=== PATIENT | female | born 1930 | race Caucasian/White ===

== ENCOUNTER 2017-04-05 11:26 | Observation (INO) | payer OTHER ==
[2017-04-05] MEDS ORDERED: ZOFRAN INJ 4 MG VIAL IVP PRN (12:35)
[2017-04-05 13:21] LABS: BASOPHILS % (AUTO) 0.6 % (0.2-1.0); EOSINOPHILS # (AUTO) 0.1 x10^3/uL (0.0-0.2); EOSINOPHILS % (AUTO) 2.1 % (0.9-2.9); HEMATOCRIT 39.6 % (36.0-47.0); HEMOGLOBIN 13.5 g/dL (12.0-16.0); LYMPHOCYTES # (AUTO) 0.8 X10^3/uL (1.3-2.9); LYMPHOCYTES % (AUTO) 13.3 % (21.0-51.0); MEAN CORPUSCULAR HEMOGLOBIN 29.7 pg (27.0-34.0); MEAN CORPUSCULAR HGB CONC 34.2 g/dL (33.0-35.0); MEAN CORPUSCULAR VOLUME 86.8 fL (80.0-100.0); MEAN PLATELET VOLUME 7.9 fL (7.4-11.0); MONOCYTES # (AUTO) 0.4 x10^3/uL (0.3-0.8); MONOCYTES % (AUTO) 6.5 % (0.0-13.0); NEUTROPHILS # (AUTO) 4.7 x10^3/uL (2.2-4.8); NEUTROPHILS % (AUTO) 77.5 % (42.0-75.0); PLATELET COUNT 170 X10^3/uL (150.0-450.0); RED BLOOD COUNT 4.56 X10^6/uL (3.5-5.4); RED CELL DISTRIBUTION WIDTH 13.5 % (11.6-16.5); WHITE BLOOD COUNT 6.1 X10^3/uL (3.6-10.0)
[2017-04-05 13:24] VITALS: BMI 27.6
[2017-04-05 13:35] LABS: ALANINE AMINOTRANSFERASE 21 Units/L (12-78); ALBUMIN 3.6 g/dL (3.4-5.0); ALKALINE PHOSPHATASE 59 Units/L (46-116); ASPARTATE AMINO TRANSFERASE 17 Units/L (15-37); BLOOD UREA NITROGEN 14 mg/dL (7-18); CALCIUM 9.1 mg/dL (8.5-10.1); CARBON DIOXIDE 25.9 mmol/L (21-32); CHLORIDE 106 mmol/L (98-107); CREATININE 0.91 mg/dL (0.55-1.02); GLUCOSE 93 mg/dL (65-99); SODIUM 142 mmol/L (136-145); TOTAL PROTEIN 7.3 g/dL (6.4-8.2); eGFR BLACK RACES > 60 (>60); eGFR NON BLACK RACES > 60 (>60)
[2017-04-05] MEDS: FLAGYL IV PREMIX 500 MG BAG 500 MG/100 ML BAG IV SCH ×3 (14:12→20:26)
[2017-04-05] MEDS: NS 1000 ML 1,000 ML IV SCH (14:13)
[2017-04-05] MEDS: CIPRO IV 400 MG PREMIX* 400 MG/200 ML IV.SOLN. IV SCH ×2 (14:13→20:26)
[2017-04-05] MEDS: PROTONIX INJ 40 MG VIAL IVP SCH (14:16)
[2017-04-05] MEDS ORDERED: PATIENT'S HOME MEDICATION PO SCH (15:00)
--- NOTE | 2017-04-05 15:21 | DR.H&P ---
H&P - History & Physical for Day of: H&P Date: 04/05/17 - Chief Complaint Chief Complaint: RLQ PAIN, FEVER, SEVERE DIARRHEA - Allergies Allergies/Adverse Reactions: Allergies Allergy/AdvReac Type Severity Reaction Status Date / Time Quinine Allergy Verified 01/07/13 09:54 - History of Present Illness History of Present Illness: 86 WF DIRECT ADMIT FROM DR WILSON OFFICE WITH CO RLQ PAIN AND DIARRHEA FOR SEVERAL DAYS. PT STATES THIS AM SHE WAS VERY WEAK, CLAMMY, HAD NEAR SYNCOPE EPISODE. PT HAS PMH OF HTN, ALANNA AND HYPERLIPIDEMIA. PLAN TO ADMIT FOR EVALUAITON OF ABDOMINAL PAIN AND DIARRHEA. PLAN TO OBTAIN LABS , STOOL STUDIES, ADMINISTER IV ATBX AND IV FLUIDS, CT ABD/PELVIS R/O DIVERTICULITIS - Past Medical History Past Medical History: Anxiety, Depression, Hypertension - Past Surgical History Surgical History: Abdominal Surgery - Family History Family Medical History: Diabetes Mellitus, Cancer, Coronary Artery Disease, Hypertension - Social History Does patient currently use any type of tobacco product: No Have you used tobacco products in the last 12 months: No Type of Tobacco Use: None Does any household member use tobacco: No Alcohol Use: None Drug Use: None - Medications Home Medications: Amlodipine Besylate [Amlodipine Besylate] 1 tab PO DAILY 04/05/17 [History Confirmed 04/05/17] Loratadine [Allergy] 1 tab PO DAILY 04/05/17 [History Confirmed 04/05/17] Lovastatin [Lovastatin] 1 tab PO HS 04/05/17 [History Confirmed 04/05/17] Misc Home Med [Patient's Home Medication (Non-PO)] 1 tab PO DAILY 04/05/17 [ History Confirmed 04/05/17] Misc Home Med [Patient's Home Medication (Non-PO)] 50 mg PO DAILY 04/05/17 [ History Confirmed 04/05/17] Quetiapine Fumarate [Quetiapine Fumarate] 1 tab PO HS 04/05/17 [History Confirmed 04/05/17] - Review of Systems Constitutional: Fever, Chills, Sweats, Weakness Eyes: No Symptoms Reported ENT: No Symptoms Reported Respiratory: No Symptoms Reported Cardiovascular: [place] Gastrointestinal: Nausea, Abdominal Pain, Diarrhea Genitourinary: No Symptoms Reported Musculoskeletal: No Symptoms Reported Skin: No Symptoms Reported Neurological: No Symptoms Reported - Physical Exam Vital Signs: Temperature 98.8 F Pulse Rate [Right Brachial] 58 Respiratory Rate 20 Blood Pressure [Left Arm] 130/60 Blood Pressure [Right Arm] 133/62 Blood Pressure 133/66 O2 Sat by Pulse Oximetry 96 Oriented: Normal Eyes: Normal Ear: Normal Nose: Normal Throat: Dry Respiratory: Clear Throughout Cardiovascular: Normal : Normal Auscultation: Bowel Sounds: Increased Tenderness: RLQ Skin: Decreased Turgur Musculoskeletal: Normal Psychiatric: Anxiety Speech Pattern: Clear, Appropriate - Assessment/Plan (1) Abdominal pain Qualifiers: Abdominal location: A Status: Acute Plan: ADMIT, NPO FOR CT SCAN ABD/PELVIS. CBC, CMP STOOL STUDIES. UA/UC, FLAGYL IV, CIPRO IV. IV NS FOR HYDRATION. PAIN CONTROL, REPEAT AM LABS (2) Dehydration Status: Acute Plan: SEE ABOVE (3) Diarrhea Qualifiers: Diarrhea type: D Status: Acute (4) Hypertension Qualifiers: Hypertension type: H Status: Chronic
[2017-04-05] MEDS: CLARITIN PO SCH (15:58)
[2017-04-05] MEDS: NORVASC TAB 2.5 MG PO SCH (15:58)
[2017-04-05] MEDS ORDERED: NS 100 ML IV 100 ML IV ONE (16:27)
[2017-04-05 16:51] LABS: BILIRUBIN,URINE NEGATIVE (NEGATIVE); BLOOD/HEMOGLOBIN,URINE 1+ (NEGATIVE); GLUCOSE, URINE NEGATIVE (NEGATIVE); KETONES,URINE 3+ (NEGATIVE); LEUKOCYTE ESTERASE ,URINE 2+ (NEGATIVE); NITRITES,URINE NEGATIVE (NEGATIVE); PROTEIN,URINE NEGATIVE (NEGATIVE); UROBILINOGEN,URINE NORMAL (NORMAL)
[2017-04-05 16:59] LABS: APPEARANCE,URINE CLEAR (CLEAR); BACTERIA,URINE NEGATIVE /HPF (NEGATIVE); COLOR,URINE YELLOW (YELLOW); RBC,URINE RARE /HPF (NEGATIVE); SQUAMOUS EPITHELIAL CELL,UR RARE /HPF (NEGATIVE)
--- NOTE | 2017-04-05 17:27 | RAD ---
History : Hypertension and dizziness and near-syncope Study: AP chest Comparison: April 2016 Findings: There is a large air-filled hiatal hernia as before. The lungs are clear the heart size is normal. The mediastinum is unremarkable. Impression: Large hiatal hernia Reported By:
--- NOTE | 2017-04-05 17:34 | CT ---
HISTORY: Right lower quadrant pain and fever and nausea Study: CT abdomen and pelvis with IV and oral contrast Comparison: May 13, 2016 Technique: Multiple axial images of the abdomen and pelvis were obtained from the lung bases to the pubic symph ysis with the administration of IV contrast. Sagittal and coronal reformations were provided. Findings: As before there is a large gaseous distended hiatal hernia. The liver, spleen, pancreas, kidneys, and adrenal glands are unremarkable in their CT appearance. The gallbladder is unremarkable in its C T appearance. No significant mesenteric lymphadenopathy or stranding can be observed. No free flui d or free air is seen within the abdomen. There is an unchanged small fat containing ventral abdomi nal hernia through a defect measuring 2 centimeters, inferior to the umbilicus. The uterus is small. There is no adnexal mass. I do not visualize the appendix on today's exam.. The colon is unremarka ble. Specifically, there is no diverticulosis noted within the sigmoid colon. The urinary bladder i s grossly unremarkable. The bony structures are grossly intact. IMPRESSION: 1. Unchanged large hiatal hernia and small midline ventral abdominal hernia Reported By:
[2017-04-05] MEDS ORDERED: NORCO 5/325 MG TAB PO PRN (18:01)
[2017-04-05] MEDS ORDERED: [UNRECOGNIZED DRUG - OTHER] PO SCH (21:00)
[2017-04-05] MEDS ORDERED: [UNRECOGNIZED DRUG - OTHER] PO SCH (21:00)
[2017-04-06] MEDS: NS 1000 ML 1,000 ML IV SCH ×3 (04:19→21:22)
[2017-04-06] MEDS: FLAGYL IV PREMIX 500 MG BAG 500 MG/100 ML BAG IV SCH ×4 (04:19→21:22)
[2017-04-06] MEDS: PATIENT'S HOME MEDICATION PO SCH ×5 (06:22→18:56)
[2017-04-06 06:32] LABS: BASOPHILS % (AUTO) 0.9 % (0.2-1.0); EOSINOPHILS # (AUTO) 0.4 x10^3/uL (0.0-0.2); EOSINOPHILS % (AUTO) 9.1 % (0.9-2.9); HEMATOCRIT 36.5 % (36.0-47.0); HEMOGLOBIN 12.2 g/dL (12.0-16.0); LYMPHOCYTES % (AUTO) 24.1 % (21.0-51.0); MEAN CORPUSCULAR HEMOGLOBIN 29.2 pg (27.0-34.0); MEAN CORPUSCULAR HGB CONC 33.5 g/dL (33.0-35.0); MEAN CORPUSCULAR VOLUME 87.3 fL (80.0-100.0); MEAN PLATELET VOLUME 8.4 fL (7.4-11.0); MONOCYTES # (AUTO) 0.5 x10^3/uL (0.3-0.8); NEUTROPHILS # (AUTO) 2.4 x10^3/uL (2.2-4.8); NEUTROPHILS % (AUTO) 54.9 % (42.0-75.0); PLATELET COUNT 153 X10^3/uL (150.0-450.0); RED BLOOD COUNT 4.18 X10^6/uL (3.5-5.4); RED CELL DISTRIBUTION WIDTH 13.8 % (11.6-16.5); WHITE BLOOD COUNT 4.3 X10^3/uL (3.6-10.0)
[2017-04-06 06:41] LABS: ALANINE AMINOTRANSFERASE 19 Units/L (12-78); ALKALINE PHOSPHATASE 47 Units/L (46-116); AMYLASE 20 Units/L (25-115); ASPARTATE AMINO TRANSFERASE 16 Units/L (15-37); BLOOD UREA NITROGEN 10 mg/dL (7-18); CALCIUM 8.8 mg/dL (8.5-10.1); CARBON DIOXIDE 26.8 mmol/L (21-32); CHLORIDE 109 mmol/L (98-107); COR CA(FOR HYPOALB) 9.6 mg/dL (8.5-10.1); CREATININE 0.84 mg/dL (0.55-1.02); GLUCOSE 75 mg/dL (65-99); LIPASE 110 Units/L (73-393); SODIUM 144 mmol/L (136-145); TOTAL PROTEIN 6.3 g/dL (6.4-8.2); eGFR BLACK RACES > 60 (>60); eGFR NON BLACK RACES > 60 (>60)
[2017-04-06] MEDS ORDERED: NORVASC TAB 2.5 MG ONE (08:27)
[2017-04-06] MEDS: CIPRO IV 400 MG PREMIX* 400 MG/200 ML IV.SOLN. IV SCH ×2 (08:29→21:22)
[2017-04-06] MEDS: PROTONIX INJ 40 MG VIAL IVP SCH (08:29)
[2017-04-06] MEDS: NORVASC TAB 2.5 MG PO SCH (08:29)
[2017-04-06] MEDS: CLARITIN PO SCH (08:34)
--- NOTE | 2017-04-06 13:33 | PCM.PROG ---
Progress Note - Progress Note for Day of Date: 04/06/17 - Subjective Subjective: patient is a 86-year-old white female who was admitted one day ago with severe diarrhea, dehydration, weakness. Patient was admitted for IV hydration. Patient continues to complain of abdominal cramps and diarrhea this a.m. continued weakness. Plan to obtain a gallbladder ultrasound and repeat a.m. labs. - Past Medical Family Social History Past Med/Fam/Surg Hx: No changes since H&P Allergies: Allergies Quinine Allergy (Verified 01/07/13 09:54) - Review of Systems ROS: No change since H&P - Vital Signs and I&O's Vital Signs: Temperature 98.7 F Pulse Rate [Right Brachial] 53 Respiratory Rate 18 Blood Pressure [Left Arm] 134/63 Blood Pressure [Right Arm] 120/61 Blood Pressure 133/66 O2 Sat by Pulse Oximetry 96 Intake and Output: Intake & Output 04/04/17 04/05/17 04/06/17 04/07/17 11:59 11:59 11:59 11:59 Intake Total 1161 Balance 1161 - Physical Exam Oriented: Normal Eyes: Normal Ear: Normal Nose: Normal Throat: Dry Cardiovascular: Normal : Normal Auscultation: Bowel Sounds: Increased Tenderness: RLQ Skin: Decreased Turgur Musculoskeletal: Normal Psychiatric: Anxiety Speech Pattern: Clear, Appropriate - Laboratory and Diagnostics Result Diagrams: 04/06/17 03:45 04/06/17 03:45 Labs: Laboratory WBC 4.3 X10^3/uL (3.6-10.0) 04/06/17 03:45 RBC 4.18 X10^6/uL (3.5-5.4) 04/06/17 03:45 Hgb 12.2 g/dL (12.0-16.0) 04/06/17 03:45 Hct 36.5 % (36.0-47.0) 04/06/17 03:45 MCV 87.3 fL (80.0-100.0) 04/06/17 03:45 MCH 29.2 pg (27.0-34.0) 04/06/17 03:45 MCHC 33.5 g/dL (33.0-35.0) 04/06/17 03:45 RDW 13.8 % (11.6-16.5) 04/06/17 03:45 Plt Count 153 X10^3/uL (150.0-450.0) 04/06/17 03:45 MPV 8.4 fL (7.4-11.0) 04/06/17 03:45 Neut % 54.9 % (42.0-75.0) 04/06/17 03:45 Lymph % 24.1 % (21.0-51.0) 04/06/17 03:45 Christian % 11.0 % (0.0-13.0) 04/06/17 03:45 Eos % 9.1 % (0.9-2.9) H 04/06/17 03:45 Baso % 0.9 % (0.2-1.0) 04/06/17 03:45 Neut # 2.4 x10^3/uL (2.2-4.8) 04/06/17 03:45 Lymph # 1.0 X10^3/uL (1.3-2.9) L 04/06/17 03:45 Christian # 0.5 x10^3/uL (0.3-0.8) 04/06/17 03:45 Eos # 0.4 x10^3/uL (0.0-0.2) H 04/06/17 03:45 Baso # 0.0 X10^3/uL (0.0-0.1) 04/06/17 03:45 Absolute Nucleated RBC 0.1 /100WBC 04/06/17 03:45 Sodium 144 mmol/L (136-145) 04/06/17 03:45 Corrected Sodium TNP 04/06/17 03:45 Potassium 4.2 mmol/L (3.5-5.1) 04/06/17 03:45 Chloride 109 mmol/L (98-107) H 04/06/17 03:45 Carbon Dioxide 26.8 mmol/L (21-32) 04/06/17 03:45 BUN 10 mg/dL (7-18) 04/06/17 03:45 Creatinine 0.84 mg/dL (0.55-1.02) 04/06/17 03:45 Est GFR (MDRD) Af Amer > 60 (>60) 04/06/17 03:45 Est GFR (MDRD) Non-Af > 60 (>60) 04/06/17 03:45 Glucose 75 mg/dL (65-99) 04/06/17 03:45 Calcium 8.8 mg/dL (8.5-10.1) 04/06/17 03:45 Corrected Calcium 9.6 mg/dL (8.5-10.1) 04/06/17 03:45 Total Bilirubin 0.50 mg/dL (0.2-1.0) 04/06/17 03:45 AST 16 Units/L (15-37) 04/06/17 03:45 ALT 19 Units/L (12-78) 04/06/17 03:45 Alkaline Phosphatase 47 Units/L (46-116) 04/06/17 03:45 Total Protein 6.3 g/dL (6.4-8.2) L 04/06/17 03:45 Albumin 3.0 g/dL (3.4-5.0) L 04/06/17 03:45 Globulin 3.3 g/dL (2.5-4.5) 04/06/17 03:45 Albumin/Globulin Ratio 0.9 Ratio (1.1-2.1) L 04/06/17 03:45 Amylase 20 Units/L (25-115) L 04/06/17 03:45 Lipase 110 Units/L (73-393) 04/06/17 03:45 Specimen Type Clean catch urine 04/05/17 16:25 Urine Color Yellow (YELLOW) 04/05/17 16:25 Urine Appearance Clear (CLEAR) 04/05/17 16:25 Urine pH 6.0 (5.0 - 8.0) 04/05/17 16:25 Ur Specific [place] 1.015 (1.000-1.030) 04/05/17 16:25 Urine Protein Negative (NEGATIVE) 04/05/17 16:25 Urine Glucose (UA) Negative (NEGATIVE) 04/05/17 16:25 Urine Ketones 3+ (NEGATIVE) 04/05/17 16:25 Urine Occult Blood 1+ (NEGATIVE) 04/05/17 16:25 Urine Nitrite Negative (NEGATIVE) 04/05/17 16:25 Urine Bilirubin Negative (NEGATIVE) 04/05/17 16:25 Urine Urobilinogen Normal (NORMAL) 04/05/17 16:25 Ur Leukocyte Esterase 2+ (NEGATIVE) 04/05/17 16:25 Urine RBC Rare /HPF (NEGATIVE) 04/05/17 16:25 Urine WBC 0-4 /HPF (NEGATIVE) 04/05/17 16:25 Ur Squamous Epith Cells Rare /HPF (NEGATIVE) 04/05/17 16:25 Urine Bacteria Negative /HPF (NEGATIVE) 04/05/17 16:25 Ur Culture Indicated? No/not indicated 04/05/17 16:25 - Plan (1) Abdominal pain Status: Inactive Qualifiers: Abdominal location: A Plan: CBC, CMP STOOL STUDIES. UA/UC, FLAGYL IV, CIPRO IV. IV NS FOR HYDRATION. PAIN CONTROL, REPEAT AM LABS (2) Dehydration Status: Inactive Plan: SEE ABOVE (3) Diarrhea Status: Inactive Qualifiers: Diarrhea type: D Plan: stool studies (4) Hypertension Status: Chronic Qualifiers: Hypertension type: H Plan: resume home meds
--- NOTE | 2017-04-06 16:42 | US ---
RIGHT UPPER QUADRANT ULTRASOUND HISTORY: RUQ pain Comparison: None Technique: Multiple saunders scale and color flow Doppler images of the right upper quadrant were obtain ed. Findings: Overall study is limited by overlying bowel gas. The liver is normal in echotexture and size. No fo armando mass. No intrahepatic bile duct dilatation. No gallstones. No pericholecystic fluid or gallbladd er wall thickening. The technologist did not report a positive sonographic Mac's sign. The common bile duct measures 3 mm. The right kidney measures 10.0 cm. No hydronephrosis or renal masses. The pancreas is obscured by overlying bowel gas. IMPRESSION: 1. Negative right upper quadrant ultrasound. Reported By:
[2017-04-06] MEDS ORDERED: PATIENT'S HOME MEDICATION PO SCH (21:00)
[2017-04-06] MEDS ORDERED: [UNRECOGNIZED DRUG - OTHER] PO SCH (21:00)
[2017-04-07] MEDS: FLAGYL IV PREMIX 500 MG BAG 500 MG/100 ML BAG IV SCH ×2 (04:01→09:17)
[2017-04-07 08:50] VITALS: BP 132/61
[2017-04-07] MEDS: PATIENT'S HOME MEDICATION PO SCH ×4 (09:02→09:04)
[2017-04-07] MEDS: CIPRO IV 400 MG PREMIX* 400 MG/200 ML IV.SOLN. IV SCH (09:18)
[2017-04-07] MEDS: PROTONIX INJ 40 MG VIAL IVP SCH (09:18)
[2017-04-07] MEDS: NS 1000 ML 1,000 ML IV SCH (11:55)
== END 2017-04-07 12:05 | disposition home or self-care (01) | DRG 392 ==
LOC: MED/SURG 11:26
PROVIDERS: ADMIT Internal Medicine; ATTEND Internal Medicine
DX: R10.31 Right lower quadrant pain (principal); E86.0 Dehydration; R94.31 Abnormal electrocardiogram [ECG] [EKG]; K44.9 Diaphragmatic hernia without obstruction or gangrene; K45.8 Other specified abdominal hernia without obstruction or gangrene; R19.7 Diarrhea, unspecified; R55 Syncope and collapse; I10 Essential (primary) hypertension; I25.10 Atherosclerotic heart disease of native coronary artery without angina pectoris; E78.2 Mixed hyperlipidemia; F41.8 Other specified anxiety disorders; F32.89 Other specified depressive episodes
CPT/HCPCS: 36415; 71010; 74177; 76705; 80053; 81001; 82150; 83690; 85025; 93005; 93010; A4222; C9113; S0030; G0378; J0744

== ENCOUNTER → 2017-04-24 | Outpatient (CLI) | payer OTHER ==
[2017-04-07 08:50] VITALS: BP 132/61
--- NOTE | 2017-04-24 13:26 | CT ---
STUDY: CT HEAD WITHOUT CONTRAST HISTORY: Unspecified abnormalities, tinnitus, bilateral. COMPARISON: Head CT from January 07, 2013. TECHNIQUE: Multiple axial images of the head were obtained from the skull base to the vertex without administration of IV contrast. Automated exposure control (AEC) was utilized to adjust the MA and/o r kV. Findings: The sulci, cisterns and ventricles are prominent consistent with mild diffuse volume loss. There are confluent and scattered foci of low attenuation in the periventricular and subcortical wh ite matter of both hemispheres. This is a nonspecific finding which likely represents microangiopath ic change in a patient of this age. There is an old lacunar infarct in the right basal ganglia. There is no evidence of acute territori al infarction, hemorrhage, mass, mass effect or midline shift. There are no abnormal extra-axial flu id collections. There is no evidence of acute osseous abnormality or significant soft tissue swellin g. IMPRESSION: 1. No evidence of acute intracranial abnormality. 2. Nonspecific white matter change and volume loss as described. 3. Old lacunar infarct in the right basal ganglia. 4. If there remains strong clinical concern for acute intracranial abnormality, then an MRI examinat ion should be considered for further evaluation. Reported By:
== END ==
LOC: RAD 11:30
PROVIDERS: ATTEND Nurse Practitioner Family
DX: R26.89 Other abnormalities of gait and mobility (principal); H93.13 Tinnitus, bilateral; R51 Headache
CPT/HCPCS: 70450

== ENCOUNTER 2017-05-12 11:47 | Day surgery (SDC) | payer OTHER ==
[2017-05-12] MEDS: D5 LR 1000 ML 1,000 ML IV ONE (12:13)
[2017-05-12] MEDS ORDERED: DIPRIVAN VIAL 20 ML ONE (13:59)
[2017-05-12] MEDS ORDERED: DIPRIVAN VIAL 10 ML ONE ×2 (14:33→14:48)
[2017-05-12 15:33] VITALS: BP 125/59
[2017-05-12 16:36] LABS: CRYPTOSPORIDIUM PARVUM ANTIGEN NEGATIVE (NEGATIVE); GIARDIA LAMBLIA ANTIGEN NEGATIVE (NEGATIVE)
[2017-05-12] MEDS ORDERED: K-RIDER 10 MEQ/NS 100 ML 10 MEQ/100 ML BAG IV PRN (18:00)
[2017-05-12] MEDS ORDERED: K-DUR TAB 20 MEQ PO PRN (18:00)
[2017-05-12] MEDS ORDERED: POTASSIUM CHLORIDE LIQ 20 MEQ UDC PO PRN (18:00)
[2017-05-12] MEDS ORDERED: K-LYTE EFFERVESCENT PO PRN (18:00)
== END 2017-05-12 16:10 | disposition other institution (70) ==
LOC: SURG1 11:47
PROVIDERS: ATTEND Internal Medicine
PROC: 0DBP8ZX Excision of Rectum, Via Natural or Artificial Opening Endoscopic, Diagnostic (ICD-10-PCS; principal; 2017-05-12 14:30)
PROC: 0DJD8ZZ Inspection of Lower Intestinal Tract, Via Natural or Artificial Opening Endoscopic (ICD-10-PCS; principal; 2017-05-12 14:30)
PROC: 0DBN8ZX Excision of Sigmoid Colon, Via Natural or Artificial Opening Endoscopic, Diagnostic (ICD-10-PCS; principal; 2017-05-12 14:30)
DX: R10.84 Generalized abdominal pain (principal); R19.7 Diarrhea, unspecified; R11.0 Nausea; K52.89 Other specified noninfective gastroenteritis and colitis; R10.31 Right lower quadrant pain; K63.5 Polyp of colon; K57.30 Diverticulosis of large intestine without perforation or abscess without bleeding; K64.0 First degree hemorrhoids; D12.5 Benign neoplasm of sigmoid colon; Z01.810 Encounter for preprocedural cardiovascular examination
CPT/HCPCS: 87045; 87328; 87329; 87336; 87427; 87493; 87899; 93005; 93010; 99100; A4217; J3490; J7120

== ENCOUNTER 2017-05-12 16:59 | Inpatient (IN) | payer OTHER ==
[~2017-05-12 16:59] MED LIST: NEXTERONE IV 360 MG PREMIX* 200 ML IV PRN; NS 1000 ML 1,000 ML ONE
[2017-05-12] MEDS ORDERED: NS 1000 ML 1,000 ML IV PRN (17:06)
[2017-05-12 17:37] LABS: BLOOD UREA NITROGEN 8 mg/dL (7-18); CALCIUM 7.9 mg/dL (8.5-10.1); CHLORIDE 104 mmol/L (98-107); CREATININE 0.86 mg/dL (0.55-1.02); GLUCOSE 107 mg/dL (65-99); SODIUM 141 mmol/L (136-145); eGFR BLACK RACES > 60 (>60); eGFR NON BLACK RACES > 60 (>60)
[2017-05-12 17:39] VITALS: BMI 27.1
[2017-05-12 17:41] LABS: ALANINE AMINOTRANSFERASE 16 Units/L (12-78); ALBUMIN 2.4 g/dL (3.4-5.0); ALKALINE PHOSPHATASE 88 Units/L (46-116); ASPARTATE AMINO TRANSFERASE 14 Units/L (15-37); COR CA(FOR HYPOALB) 9.2 mg/dL (8.5-10.1); MAGNESIUM 1.5 mg/dL (1.7-2.9); TOTAL PROTEIN 6.6 g/dL (6.4-8.2)
[2017-05-12] MEDS ORDERED: MAGNESIUM SULFATE 1 GM/100 mL PREMIX 2 GM/200 ML BAG IV ONE (17:50)
[2017-05-12 17:54] LABS: CKMB % 3.9 % (<4); CREATINE KINASE 26 Units/L (26-192); CREATINE KINASE MB < 1.0 ng/mL (0-4.0); TROPONIN I < 0.02 ng/mL (0-1.5)
[2017-05-12] MEDS ORDERED: K-LYTE EFFERVESCENT ONE (17:56)
[2017-05-12] MEDS ORDERED: K-DUR TAB 20 MEQ PO ONE (17:56)
[2017-05-12] MEDS ORDERED: POTASSIUM CHLORIDE LIQ 20 MEQ UDC PO PRN ×2 (18:01→20:36)
[2017-05-12] MEDS ORDERED: K-RIDER 10 MEQ/NS 100 ML 10 MEQ/100 ML BAG IV PRN ×2 (18:01→20:36)
[2017-05-12] MEDS ORDERED: K-DUR TAB 20 MEQ PO PRN (18:01)
[2017-05-12] MEDS ORDERED: K-LYTE EFFERVESCENT PO PRN ×2 (18:01→20:36)
[2017-05-12] MEDS: MAGNESIUM SULFATE 1 GM/100 mL PREMIX 1 GM/100 ML BAG IV SCH ×2 (18:04→19:16)
[2017-05-12] MEDS ORDERED: CORDARONE INJ 150 MG VIAL IVP ONE (19:17)
[2017-05-12] MEDS ORDERED: NEXTERONE IV 150 MG PREMIX* 100 ML IV ONE ×2 (19:17→19:22)
[2017-05-12] MEDS ORDERED: NEXTERONE IV 360 MG PREMIX* 200 ML IV PRN (19:19)
[2017-05-12] MEDS ORDERED: DRUG FILTER EXTENSION SET ONE (19:55)
[2017-05-12] MEDS: K-DUR TAB 20 MEQ PO PRN (21:39)
[2017-05-12 23:43] LABS: CKMB % 4.2 % (<4); CREATINE KINASE 24 Units/L (26-192); CREATINE KINASE MB < 1.0 ng/mL (0-4.0); TROPONIN I < 0.02 ng/mL (0-1.5)
[2017-05-13] MEDS ORDERED: NEXTERONE IV 360 MG PREMIX* 200 ML IV PRN ×2 (01:23)
[2017-05-13] MEDS: NS 1000 ML 1,000 ML IV PRN (05:18)
[2017-05-13 06:12] LABS: BASOPHILS % (AUTO) 0.4 % (0.2-1.0); EOSINOPHILS % (AUTO) 0.6 % (0.9-2.9); HEMATOCRIT 34.1 % (36.0-47.0); HEMOGLOBIN 11.8 g/dL (12.0-16.0); LYMPHOCYTES # (AUTO) 0.9 X10^3/uL (1.3-2.9); LYMPHOCYTES % (AUTO) 11.5 % (21.0-51.0); MEAN CORPUSCULAR HEMOGLOBIN 29.8 pg (27.0-34.0); MEAN CORPUSCULAR HGB CONC 34.7 g/dL (33.0-35.0); MEAN CORPUSCULAR VOLUME 85.7 fL (80.0-100.0); MEAN PLATELET VOLUME 8.6 fL (7.4-11.0); MONOCYTES # (AUTO) 0.8 x10^3/uL (0.3-0.8); MONOCYTES % (AUTO) 10.9 % (0.0-13.0); NEUTROPHILS # (AUTO) 5.8 x10^3/uL (2.2-4.8); NEUTROPHILS % (AUTO) 76.6 % (42.0-75.0); PLATELET COUNT 165 X10^3/uL (150.0-450.0); RED BLOOD COUNT 3.98 X10^6/uL (3.5-5.4); RED CELL DISTRIBUTION WIDTH 13.5 % (11.6-16.5); WHITE BLOOD COUNT 7.5 X10^3/uL (3.6-10.0)
[2017-05-13 06:31] LABS: ALANINE AMINOTRANSFERASE 23 Units/L (12-78); ALBUMIN 2.1 g/dL (3.4-5.0); ALKALINE PHOSPHATASE 82 Units/L (46-116); ASPARTATE AMINO TRANSFERASE 27 Units/L (15-37); BLOOD UREA NITROGEN 10 mg/dL (7-18); CALCIUM 7.6 mg/dL (8.5-10.1); CARBON DIOXIDE 27.8 mmol/L (21-32); CHLORIDE 107 mmol/L (98-107); COR CA(FOR HYPOALB) 9.1 mg/dL (8.5-10.1); CREATINE KINASE 20 Units/L (26-192); CREATINE KINASE MB < 1.0 ng/mL (0-4.0); CREATININE 0.66 mg/dL (0.55-1.02); GLUCOSE 99 mg/dL (65-99); SODIUM 139 mmol/L (136-145); TROPONIN I < 0.02 ng/mL (0-1.5); eGFR BLACK RACES > 60 (>60); eGFR NON BLACK RACES > 60 (>60)
[2017-05-13] MEDS ORDERED: CORDARONE TAB 200 MG ONE (07:59)
[2017-05-13] MEDS: CORDARONE TAB 200 MG PO SCH (08:01)
[2017-05-13] MEDS ORDERED: LOMOTIL PO PRN (08:25)
[2017-05-13] MEDS ORDERED: LOVASTATIN 20 MG PO SCH ×2 (09:00→21:00)
[2017-05-13] MEDS ORDERED: VITAMIN E PO SCH (09:00)
[2017-05-13] MEDS ORDERED: PATIENT'S HOME MEDICATION (Quetiapine Fumarate [Quetiapine Fumarate Er] 50 MG) PO SCH (09:00)
[2017-05-13] MEDS ORDERED: UBIDECARENONE PO SCH (09:00)
[2017-05-13] MEDS: CLARITIN PO SCH (10:23)
--- NOTE | 2017-05-13 15:16 | PCM.PROG ---
Progress Note - Progress Note for Day of Date: 05/13/17 - Subjective Subjective: Patient is a 86yo female who was admitted with Diagnosis of atrial fibrillation. Pateint was on a amiodarone IV and eventually able to start on amiodarone orally. Patient states she is feeling much better. Vital signs this am are 97.1, 65, 15, 129/42. Labs this am are within normal limits with the exception of Hgb 11.8, Hct 34.1, Neut% 76.6, Lymph% 11.5, Eos% 0.6, Neut# 5.8, Lymph# 0.9, Calcium 7.6, Creatinine Kinase 20, Total Prtoetin 6.0, Albumin 2.1, Albumin/globulin ratio 0.5. We are going to watch patient one more day and if heart rate remains stable we will let her go tomorrow. We are resuming her home medications with the exception of Norvasc as her blood pressure is low. We will follow up in the am with reapeat labs. - Past Medical Family Social History Past Med/Fam/Surg Hx: No changes since H&P Allergies: Allergies quinine Allergy (Verified 05/13/17 06:10) - Review of Systems ROS: No change since H&P - Vital Signs and I&O's Vital Signs: 97.1, 65, 15, 129/42 Intake and Output: Intake & Output 05/11/17 05/12/17 05/13/17 05/14/17 11:59 11:59 11:59 11:59 Intake Total 2523 Output Total 300 Balance 2223 - Physical Exam Oriented: Normal Eyes: Normal Ear: Normal Nose: Normal Throat: Normal Respiratory: Normal Cardiovascular: Normal : Normal Auscultation: Bowel Sounds: Normal Palpation: Normal Tenderness: Normal Skin: Normal Musculoskeletal: Normal Psychiatric: Normal Mood Description: Calm Affect: Normal Speech Pattern: Clear - Laboratory and Diagnostics Result Diagrams: 05/13/17 05:05 05/13/17 05:05 Labs: Laboratory WBC 7.5 X10^3/uL (3.6-10.0) 05/13/17 05:05 RBC 3.98 X10^6/uL (3.5-5.4) 05/13/17 05:05 Hgb 11.8 g/dL (12.0-16.0) L 05/13/17 05:05 Hct 34.1 % (36.0-47.0) L 05/13/17 05:05 MCV 85.7 fL (80.0-100.0) 05/13/17 05:05 MCH 29.8 pg (27.0-34.0) 05/13/17 05:05 MCHC 34.7 g/dL (33.0-35.0) 05/13/17 05:05 RDW 13.5 % (11.6-16.5) 05/13/17 05:05 Plt Count 165 X10^3/uL (150.0-450.0) 05/13/17 05:05 MPV 8.6 fL (7.4-11.0) 05/13/17 05:05 Neut % 76.6 % (42.0-75.0) H 05/13/17 05:05 Lymph % 11.5 % (21.0-51.0) L 05/13/17 05:05 [place] % 10.9 % (0.0-13.0) 05/13/17 05:05 Eos % 0.6 % (0.9-2.9) L 05/13/17 05:05 Baso % 0.4 % (0.2-1.0) 05/13/17 05:05 Neut # 5.8 x10^3/uL (2.2-4.8) H 05/13/17 05:05 Lymph # 0.9 X10^3/uL (1.3-2.9) L 05/13/17 05:05 [place] # 0.8 x10^3/uL (0.3-0.8) 05/13/17 05:05 Eos # 0.0 x10^3/uL (0.0-0.2) 05/13/17 05:05 Baso # 0.0 X10^3/uL (0.0-0.1) 05/13/17 05:05 Absolute Nucleated RBC 0.0 /100WBC 05/13/17 05:05 Sodium 139 mmol/L (136-145) 05/13/17 05:05 Corrected Sodium TNP 05/13/17 05:05 Potassium 4.4 mmol/L (3.5-5.1) 05/13/17 05:05 Chloride 107 mmol/L (98-107) 05/13/17 05:05 Carbon Dioxide 27.8 mmol/L (21-32) 05/13/17 05:05 BUN 10 mg/dL (7-18) 05/13/17 05:05 Creatinine 0.66 mg/dL (0.55-1.02) 05/13/17 05:05 Est GFR (MDRD) Af Amer > 60 (>60) 05/13/17 05:05 Est GFR (MDRD) Non-Af > 60 (>60) 05/13/17 05:05 Glucose 99 mg/dL (65-99) 05/13/17 05:05 Calcium 7.6 mg/dL (8.5-10.1) L 05/13/17 05:05 Corrected Calcium 9.1 mg/dL (8.5-10.1) 05/13/17 05:05 Magnesium 1.5 mg/dL (1.7-2.9) L 05/12/17 17:23 Total Bilirubin 0.20 mg/dL (0.2-1.0) 05/13/17 05:05 AST 27 Units/L (15-37) 05/13/17 05:05 ALT 23 Units/L (12-78) 05/13/17 05:05 Alkaline Phosphatase 82 Units/L (46-116) 05/13/17 05:05 Creatine Kinase 20 Units/L (26-192) L 05/13/17 05:05 CK-MB (CK-2) < 1.0 ng/mL (0-4.0) 05/13/17 05:05 CK/CKMB % Calc 5.0 % (<4) 05/13/17 05:05 Troponin I < 0.02 ng/mL (0-1.5) 05/13/17 05:05 Total Protein 6.0 g/dL (6.4-8.2) L 05/13/17 05:05 Albumin 2.1 g/dL (3.4-5.0) L 05/13/17 05:05 Globulin 3.9 g/dL (2.5-4.5) 05/13/17 05:05 Albumin/Globulin Ratio 0.5 Ratio (1.1-2.1) L 05/13/17 05:05 - Plan (1) Atrial fibrillation Status: Acute Qualifiers: Atrial fibrillation type: A Plan: Amiodarone (2) Hyperlipidemia Status: Chronic Qualifiers: Hyperlipidemia type: H Plan: Lovastatin
[2017-05-14] MEDS: NS 1000 ML 1,000 ML IV PRN (00:45)
[2017-05-14 06:21] LABS: BASOPHILS % (AUTO) 0.6 % (0.2-1.0); EOSINOPHILS # (AUTO) 0.1 x10^3/uL (0.0-0.2); EOSINOPHILS % (AUTO) 2.2 % (0.9-2.9); HEMATOCRIT 36.3 % (36.0-47.0); HEMOGLOBIN 12.6 g/dL (12.0-16.0); LYMPHOCYTES % (AUTO) 16.9 % (21.0-51.0); MEAN CORPUSCULAR HEMOGLOBIN 29.7 pg (27.0-34.0); MEAN CORPUSCULAR HGB CONC 34.5 g/dL (33.0-35.0); MEAN CORPUSCULAR VOLUME 85.9 fL (80.0-100.0); MEAN PLATELET VOLUME 8.1 fL (7.4-11.0); MONOCYTES # (AUTO) 0.7 x10^3/uL (0.3-0.8); MONOCYTES % (AUTO) 11.3 % (0.0-13.0); PLATELET COUNT 198 X10^3/uL (150.0-450.0); RED BLOOD COUNT 4.23 X10^6/uL (3.5-5.4); RED CELL DISTRIBUTION WIDTH 13.3 % (11.6-16.5); WHITE BLOOD COUNT 5.9 X10^3/uL (3.6-10.0)
[2017-05-14 06:27] LABS: ALANINE AMINOTRANSFERASE 31 Units/L (12-78); ALBUMIN 2.2 g/dL (3.4-5.0); ALKALINE PHOSPHATASE 91 Units/L (46-116); ASPARTATE AMINO TRANSFERASE 28 Units/L (15-37); BLOOD UREA NITROGEN 11 mg/dL (7-18); CARBON DIOXIDE 24.4 mmol/L (21-32); CHLORIDE 107 mmol/L (98-107); COR CA(FOR HYPOALB) 9.4 mg/dL (8.5-10.1); CREATININE 0.77 mg/dL (0.55-1.02); GLUCOSE 97 mg/dL (65-99); SODIUM 140 mmol/L (136-145); TOTAL PROTEIN 6.4 g/dL (6.4-8.2); eGFR BLACK RACES > 60 (>60); eGFR NON BLACK RACES > 60 (>60)
[2017-05-14] MEDS: CLARITIN PO SCH (08:54)
[2017-05-14] MEDS: CORDARONE TAB 200 MG PO SCH (08:54)
[2017-05-14] MEDS ORDERED: PATIENT'S HOME MEDICATION PO SCH (09:00)
[2017-05-14 11:21] VITALS: BP 141/74
[2017-05-14] MEDS: K-DUR TAB 20 MEQ PO PRN (11:49)
--- NOTE | 2017-05-15 16:10 | DR.CARTERD ---
- Discharge Summary for: Discharge Summary for Date of:: 05/14/17 - Admission Date Date of Admission: 05/12/17 - Admission Diagnoses Admission Diagnosis: Afib with RVR - Discharge Date Discharge Date: 05/14/17 - Discharge Diagnoses Discharge Diagnosis: Afib with RVR - Hospital Course Hospital Course: Patient is a 86yo female who was admitted with Diagnosis of atrial fibrillation as a direct admit after having a colonoscopy where she began having afib with RVR for greater than one hour. Patient was on amiodarone IV drip and eventually able to start on amiodarone orally. EKG on arrival showed sinus rhythm rate of 62 with RBBB and LAFB. Patient also found to be hypokalemic at 2.6 for which she was started on potassium replacement protocol for. Patient rhythm converted to normal sinus rhythm and remained normal after being transitioned to oral amiodarone. Patient was watched for one more day, her vital signs and rhythm remained stable. Vitals sign this am 97.8, 71, 18, 94%, 117/54. Labs are within normal limits with the exception of Lymph% 16.9, Lymph# 1.0, Calcium 8.0, Albumin 2.2 and albumin/globulin ratio 0.5. Patient is being discharge home in stable condition to resume her home medications with the addition of amiodarone 200mg PO Daily. She is to follow up with Dr. Villagran in 1 week. Labs: Labs are within normal limits with the exception of Lymph% 16.9, Lymph# 1.0, Calcium 8.0, Albumin 2.2 and albumin/globulin ratio 0.5. - Discharge Medications Discharge Medications: Loratadine 10 mg 24-Hr Tab [LORATADINE 10 MG *] 10 mg PO DAILY 05/12/17 [History ] Ubidecarenone/Vitamin E [Co Q-10 50 mg Softgel] 50 mg PO DAILY 05/12/17 [History ] Amiodarone HCl [CORDARONE tab 200 mg *] 200 mg PO DAILY #30 tab 05/14/17 [Rx] - Discharge Disposition Discharge Disposition: Home
== END 2017-05-14 13:15 | disposition home or self-care (01) | DRG 310 ==
LOC: UNDOADMOB 16:59 → ICU 16:59 → OBSVTOIN 19:30
PROVIDERS: ADMIT Internal Medicine; ATTEND Internal Medicine
DX: I48.0 Paroxysmal atrial fibrillation (principal); Z98.890 Other specified postprocedural states
CPT/HCPCS: 36415; 80053; 82550; 82553; 83735; 84132; 84484; 85025; 93005; 93010; A4222; G0378

== ENCOUNTER → 2017-05-18 | Outpatient (CLI) | payer OTHER ==
--- NOTE | 2017-05-18 13:59 | NM ---
HISTORY: Malabsorption, abdominal pain Study: Nuclear medicine HIDA scan with ejection fraction Comparison: None Technique: Multiple scintigraphic images of the abdomen were obtained the intravenous administration of 5.6 mCi of technetium labeled Choletec. Following distention of the gallbladder with radiotracer the patient received a fatty meal.. An est imated gallbladder ejection fraction was calculated based on the physiologic response of this infusi on. Findings: Homogeneous uptake of radiotracer is seen throughout the liver. This intrabiliary ductal system is observed normally. The common hepatic and common bile duct grossly appear unremarkable with normal biliary-bowel transit. The gallbladder is observed to fill normally. After the fatty meal a a gallbladder ejection fraction of 8.5% (normal > 35%) is observed. IMPRESSION: 1. Normal hepatobiliary imaging scan. 2. Abnormal gallbladder ejection fraction 8.5% Reported By:
== END | disposition home or self-care (01) ==
LOC: RAD 09:43
PROVIDERS: ATTEND Nurse Practitioner Family
DX: K90.49 Malabsorption due to intolerance, not elsewhere classified (principal); K58.9 Irritable bowel syndrome, unspecified; R53.83 Other fatigue; E86.0 Dehydration; R10.31 Right lower quadrant pain
CPT/HCPCS: 78227